=== PATIENT | female | born 1955 | race Two or more races ===

== ENCOUNTER 2021-10-30 17:17 | Emergency (ER) | payer OTHER ==
[~2021-10-30] VITALS: Ht 167.6 cm; Wt 70.3 kg
[2021-10-30] MEDS ORDERED: ZOCOR40 MG PO (18:03)
== END 2021-10-31 00:44 | disposition home or self-care (01) ==
LOC: ER 17:17
DX: K52.1 Toxic gastroenteritis and colitis (principal); T61 Toxic effect of noxious substances eaten as seafood; Y92.89 Other specified places as the place of occurrence of the external cause